=== PATIENT | male | born 1980 | race Two or more races ===

== ENCOUNTER 2019-10-16 20:59 | Inpatient (IN) | payer SELFPAY ==
[~2019-10-16] VITALS: Ht 165.1 cm; Wt 50.1 kg
[2019-10-17] MEDS ORDERED: HALOPERIDOL 5 MG TABLET PO PRN (03:00)
[2019-10-17] MEDS ORDERED: ZOLPIDEM TARTRATE 10 MG TABLET PO PRN (03:00)
[2019-10-17] MEDS ORDERED: LORazepam 1 MG TABLET PO PRN (03:00)
[2019-10-17 05:40] VITALS: BP 140/70
[2019-10-17 08:09] VITALS: BP 120/63
[2019-10-17] MEDS ORDERED: LOPERAMIDE HCL 2 MG CAPSULE PO PRN (09:30)
[2019-10-17] MEDS ORDERED: MAGNESIUM HYDROXIDE SUSPENSION 30 ML UDCUP PO PRN (09:30)
[2019-10-17] MEDS ORDERED: MAG HYDROX/AL HYDROX/SIMETH ES 30 ML SUSPENSION UDCUP PO PRN (09:30)
[2019-10-17] MEDS ORDERED: ACETAMINOPHEN 325 MG TABLET PO PRN (09:30)
[2019-10-17] MEDS ORDERED: ALBUTEROL SULFATE HFA 90 MCG/PUFF 8 GM INHALER IH PRN (09:30)
[2019-10-17] MEDS ORDERED: GuaiFENesin/D-METHORPHAN [SUGAR-FREE] 200-20MG/10 ML SYRUP UDCUP PO PRN (09:30)
[2019-10-17] MEDS ORDERED: PETROLATUM,WHITE 28 GM JELLY TP PRN (09:30)
[2019-10-17] MEDS ORDERED: NICOTINE 14 MG/24 HOUR PATCH TD PRN (09:30)
[2019-10-17] MEDS ORDERED: CloNIDine HCL 0.1 MG TABLET PO PRN (09:30)
[2019-10-17] MEDS ORDERED: ONDANSETRON HCL 4 MG TABLET PO PRN (09:30)
[2019-10-17] MEDS ORDERED: DOCUSATE SODIUM 100 MG CAPSULE PO PRN (09:30)
[2019-10-17 11:08] VITALS: BP 135/71
[2019-10-17] MEDS: IBUPROFEN 400 MG TABLET PO PRN (11:08)
[2019-10-17] MEDS: BuPROPion HCL XL 150 MG ER TABLET PO SCH (13:26)
[2019-10-17 16:06] VITALS: BP 122/78
[2019-10-18 06:15] VITALS: BP 108/66
[2019-10-18 08:20] VITALS: BP 117/64
[2019-10-18] MEDS: BuPROPion HCL XL 150 MG ER TABLET PO SCH (08:50)
[2019-10-18 16:25] VITALS: BP 110/75
[2019-10-19 05:55] VITALS: BP 113/74
[2019-10-19 08:18] VITALS: BP 117/84
[2019-10-19] MEDS: BuPROPion HCL XL 150 MG ER TABLET PO SCH (08:39)
[2019-10-19] MEDS: IBUPROFEN 400 MG TABLET PO PRN ×2 (08:52→17:06)
[2019-10-19] MEDS ORDERED: BUPR-47 PO (09:19)
[2019-10-19 09:52] VITALS: BP 115/80
[2019-10-19 17:13] VITALS: BP 100/74
== END 2019-10-19 17:05 | disposition home or self-care (01) | DRG 885 ==
LOC: B3A 10-17 02:40
PROVIDERS: ADMIT Psychiatry & Neurology Psychiatry; ATTEND Psychiatry & Neurology Psychiatry
DX: F33.2 Major depressive disorder, recurrent severe without psychotic features (principal); F19.10 Other psychoactive substance abuse, uncomplicated; Z79.899 Other long term (current) drug therapy; F10.10 Alcohol abuse, uncomplicated; Y90.9 Presence of alcohol in blood, level not specified; F17.200 Nicotine dependence, unspecified, uncomplicated
CPT/HCPCS: 84439